=== PATIENT | male | born 1955 | race Caucasian/White ===

== ENCOUNTER 2023-12-30 12:08 | Emergency (ER) | payer MEDICARE ==
[2023-12-30] MEDS ORDERED: hydrOXYzine 25 MG TAB ONE (12:51)
== END 2023-12-30 12:59 | disposition home or self-care (01) ==
LOC: BURERS 12:08
DX: F41.9 Anxiety disorder, unspecified (principal); M25.50 Pain in unspecified joint; I10 Essential (primary) hypertension
CPT/HCPCS: 99283